=== PATIENT | female | born 1965 ===

== ENCOUNTER 2023-02-24 07:15 | Inpatient (IN) | payer OTHER ==
[~2023-02-24] VITALS: Ht 170.2 cm; Wt 75.3 kg
[2023-02-24] MEDS ORDERED: VITAMIN D310 MCG/1 M PO (08:59)
[2023-02-24] MEDS ORDERED: CALCIUM PO (09:00)
[2023-02-24] MEDS ORDERED: [UNRECOGNIZED DRUG - OTHER] PO (09:00)
[2023-02-24] MEDS ORDERED: OMEGA 3 1,0001 EACH PO (09:01)
[2023-02-24 09:18] LABS: HEMOGLOBIN 13.9 g/dL (12.0-15.00); MEAN CELL VOLUME 85.2 fL (80.00-100.00); MEAN CORPUSCULAR HEMOGLOBIN 29.6 pg (27.00-32.0); MEAN CORPUSCULAR HGB CONC 34.8 g/dl (32.0-36.0); PLATELET COUNT 288 K/uL (150-450); RED CELL DISTRIBUTION WIDTH 13.9 % (11.5-14.5)
[2023-02-24 09:19] LABS: URINE APPEARANCE Clear; URINE BILIRRUBIN Negative (NEGATIVE); URINE BLOOD Negative; URINE COLOR Yellow; URINE GLUCOSE Negative (NEGATIVE); URINE LEUKOCYTE Trace; URINE NITRATE Negative; URINE PROTEIN Negative (NEGATIVE); URINE UROBILINOGEN 0.2 E.U./dl
[2023-02-24 09:22] LABS: URINE BACTERIA 375.4 uL (0.0-1933); URINE EPITHELIAL CELLS 18.3 uL (0.0-38.8); URINE RBC 6.1 uL (0.0-20.8); URINE WBC 13.4 uL (0.0-23.2)
[2023-02-24 09:49] LABS: INR 0.99; PROTHROMBIN TIME 10.4 SECONDS (9.0-11.5)
[2023-02-24 09:57] LABS: ALBUMIN 4.2 gm/dL (3.4-5.0); BILIRUBIN TOTAL 0.74 mg/dL (0.3-1.2); CALCIUM 9.3 mg/dL (8.5-10.1); CREATININE SERUM 0.72 mg/dL (0.55-1.02); GFR 82.91; GLOBULINA 3.6 G/DL (2.4-3.5); POTASSIUM 3.82 mEq/L (3.5-5.1); TOTAL PROTEIN 7.8 gm/dL (6.4-8.2)
[2023-02-28 17:50] LABS: HEMATOCRIT 33.7 % (36.0-45.00); HEMOGLOBIN 11.6 g/dL (12.0-15.00); RED BLOOD COUNT 3.92 M/uL (4.00-6.00)
[2023-03-01 07:36] LABS: HEMATOCRIT 29.8 % (36.0-45.00); MEAN CELL VOLUME 85.8 fL (80.00-100.00); MEAN CORPUSCULAR HGB CONC 34.9 g/dl (32.0-36.0); PLATELET COUNT 207 K/uL (150-450); RED BLOOD COUNT 3.47 M/uL (4.00-6.00); RED CELL DISTRIBUTION WIDTH 13.9 % (11.5-14.5)
[2023-03-01 07:42] LABS: HEMOGLOBIN 10.4 g/dL (12.0-15.00); MEAN CORPUSCULAR HEMOGLOBIN 29.9 pg (27.00-32.0)
[2023-03-02] MEDS ORDERED: BACTRIM DS TAB1 EACH PO (06:38)
[2023-03-02] MEDS ORDERED: XARELTO10 MG PO (06:38)
[2023-03-02] MEDS ORDERED: OXYC1TAB9 PO (06:38)
[2023-03-02] MEDS ORDERED: INTEGRA PLUS C1 EACH PO (06:38)
[2023-03-02 07:15] LABS: HEMATOCRIT 29.1 % (36.0-45.00); MEAN CELL VOLUME 86.8 fL (80.00-100.00); MEAN CORPUSCULAR HEMOGLOBIN 29.9 pg (27.00-32.0); MEAN CORPUSCULAR HGB CONC 34.4 g/dl (32.0-36.0); PLATELET COUNT 195 K/uL (150-450); RED BLOOD COUNT 3.35 M/uL (4.00-6.00); RED CELL DISTRIBUTION WIDTH 13.2 % (11.5-14.5)
== END 2023-03-02 15:14 | DRG 470 ==
LOC: O/R 02-28 06:37 → SURH 02-28 07:15
PROVIDERS: ADMIT Orthopaedic Surgery Sports Medicine; ATTEND Orthopaedic Surgery Sports Medicine
PROC: 0SRC0J9 Replacement of Right Knee Joint with Synthetic Substitute, Cemented, Open Approach (ICD-10-PCS; principal; 2023-02-28 10:30)
PROC: 4A12X4Z Monitoring of Cardiac Electrical Activity, External Approach (ICD-10-PCS; 2023-03-02)
DX: M17.11 Unilateral primary osteoarthritis, right knee (principal); Z20.822 Contact with and (suspected) exposure to COVID-19

== ENCOUNTER 2024-06-29 09:43 | Inpatient (IN) | payer OTHER ==
[~2024-06-29] VITALS: Ht 170.2 cm; Wt 50.8 kg
[~2024-06-29 09:43] MED LIST: BACTRIM DS TAB1 EACH PO; CALCIUM PO; INTEGRA PLUS C1 EACH PO; OMEGA 3 1,0001 EACH PO; OXYC1TAB9 PO; VITAMIN D310 MCG/1 M PO; XARELTO10 MG PO; [UNRECOGNIZED DRUG - OTHER] PO
[2024-06-29 10:11] VITALS: BP 118/53; BP 118/82
[2024-07-09] MEDS ORDERED: LIDOCAINE HCL 1%/EPINEPHRINE 20ML VIAL IJ ONE (13:38)
[2024-07-09] MEDS ORDERED: CEFTRIAXONE SODIUM 2,000 MG VIAL ONE (13:38)
[2024-07-09] MEDS ORDERED: METRONIDAZOLE/SODIUM CHLORIDE 500 MG/100 ML PIGGYBACK IV ONE ×3 (13:38→17:19)
[2024-07-09] MEDS ORDERED: BUPIVACAINE HCL/Mpf 0.5% 10ML VIAL ONE (13:38)
[2024-07-09] MEDS ORDERED: OxyCODONE HCL 5 MG TABLET (ROXICODONE) PO PRN (14:15)
[2024-07-09] MEDS ORDERED: 0.9 % SODIUM CHLORIDE 1,000 ML IV SCH (14:15)
[2024-07-09] MEDS ORDERED: ONDANSETRON HCL 2 MG/ML VIAL IV PRN (14:15)
[2024-07-09] MEDS ORDERED: MORPHINE SULFATE 4 MG/ML CARTRIDGE IV PRN (14:15)
[2024-07-09] MEDS ORDERED: DEXTROSE 50 % IN WATER 0.5 G/ML DISP.SYRIN IV PRN (14:15)
[2024-07-09] MEDS ORDERED: HYOSCYAMINE SULFATE 0.125 MG TAB.SUBL SL SCH (17:00)
[2024-07-09] MEDS ORDERED: GABAPENTIN 300 MG CAPSULE PO SCH (17:00)
[2024-07-09] MEDS ORDERED: POLYETHYLENE GLYCOL 3350 17 GM BLIST.PACK PO SCH (17:00)
[2024-07-09] MEDS ORDERED: METRONIDAZOLE/SODIUM CHLORIDE 500 MG/100 ML PIGGYBACK IV SCH (17:00)
[2024-07-09] MEDS ORDERED: MORPHINE SULFATE 4 MG/ML VIAL IV ONE ×2 (17:15→17:45)
[2024-07-09] MEDS ORDERED: ONDANSETRON HCL 2 MG/ML VIAL ONE (17:53)
[2024-07-09 18:09] LABS: ALBUMIN 3.2 gm/dL (3.4-5.0); CALCIUM 8.1 mg/dL (8.5-10.1); CREATININE SERUM 0.67 mg/dL (0.55-1.02); GFR 89.78; MAGNESIUM 1.6 mg/dL (1.8-2.4); PHOSPHOROUS 3.4 mg/dL (2.5-4.9); POTASSIUM 3.74 mEq/L (3.5-5.1)
[2024-07-09 18:53] LABS: HEMATOCRIT 35.1 % (36.0-45.00); MEAN CELL VOLUME 86.2 fL (80.00-100.00); MEAN CORPUSCULAR HEMOGLOBIN 29.4 pg (27.00-32.0); MEAN CORPUSCULAR HGB CONC 34.1 g/dl (32.0-36.0); PLATELET COUNT 217 K/uL (150-450); RED BLOOD COUNT 4.07 M/uL (4.00-6.00); RED CELL DISTRIBUTION WIDTH 13.6 % (11.5-14.5)
[2024-07-09] MEDS ORDERED: FAMOTIDINE/PF 20 MG/2 ML VIAL ONE (19:59)
[2024-07-09] MEDS ORDERED: ACETAMINOPHEN 500 MG GEL..CAP PO SCH (20:00)
[2024-07-09 20:49] VITALS: BP 107/77; O2SAT 97
[2024-07-09] MEDS ORDERED: CELECOXIB 200 MG CAPSULE PO SCH (21:00)
[2024-07-09] MEDS ORDERED: FAMOTIDINE/PF 20 MG/2 ML VIAL IV PUSH SCH (21:00)
[2024-07-10 00:31] VITALS: BP 125/80; O2SAT 99
[2024-07-10 06:17] LABS: HEMATOCRIT 34.7 % (36.0-45.00); MEAN CELL VOLUME 85.7 fL (80.00-100.00); MEAN CORPUSCULAR HEMOGLOBIN 29.6 pg (27.00-32.0); MEAN CORPUSCULAR HGB CONC 34.6 g/dl (32.0-36.0); PLATELET COUNT 237 K/uL (150-450); RED BLOOD COUNT 4.05 M/uL (4.00-6.00); RED CELL DISTRIBUTION WIDTH 13.2 % (11.5-14.5)
[2024-07-10 06:58] LABS: ALBUMIN 3.2 gm/dL (3.4-5.0); CALCIUM 8.4 mg/dL (8.5-10.1); CREATININE SERUM 0.58 mg/dL (0.55-1.02); GFR 106.04; MAGNESIUM 1.7 mg/dL (1.8-2.4); PHOSPHOROUS 3.4 mg/dL (2.5-4.9); POTASSIUM 3.93 mEq/L (3.5-5.1)
[2024-07-10 09:38] VITALS: BP 116/74; O2SAT 96
[2024-07-10] MEDS ORDERED: MAGNESIUM SULFATE IN WATER 4 GM/100 ML PIGGYBACK IV NR (12:00)
[2024-07-10] MEDS ORDERED: AMINO ACIDS 1 EACH TABLET PO SCH (13:00)
[2024-07-10 16:00] VITALS: BP 115/88; O2SAT 100
[2024-07-10] MEDS ORDERED: ENOXAPARIN SODIUM 40 MG/0.4 ML SYRINGE SUBCUTANEO SCH (17:00)
[2024-07-11 08:16] VITALS: BP 135/83; O2SAT 95
[2024-07-11] MEDS ORDERED: ENOXAPARIN SODIUM 40 MG/0.4 ML SYRINGE SUBCUTANEO SCH (09:00)
[2024-07-11 16:00] VITALS: BP 127/82; O2SAT 96
[2024-07-12] VITALS: BP 121/78; O2SAT 95
[2024-07-12 10:11] VITALS: BP 124/60; O2SAT 96
[2024-07-12] MEDS ORDERED: HYOSCYAMINE0.125 M1 SL (13:04)
[2024-07-12] MEDS ORDERED: TRAM1TAB98 PO (13:05)
[2024-07-12] MEDS ORDERED: PEPCID AC20 MG PO (13:05)
== END 2024-07-12 16:42 | disposition home or self-care (01) | DRG 331 ==
LOC: O/R 07-09 06:59 → SURG 07-09 10:15
PROVIDERS: ADMIT Surgery; ATTEND Surgery
PROC: 0DBP4ZZ Excision of Rectum, Percutaneous Endoscopic Approach (ICD-10-PCS; 2024-07-09)
PROC: 07BC4ZZ Excision of Pelvis Lymphatic, Percutaneous Endoscopic Approach (ICD-10-PCS; 2024-07-09)
PROC: 0DJD8ZZ Inspection of Lower Intestinal Tract, Via Natural or Artificial Opening Endoscopic (ICD-10-PCS; 2024-07-09)
PROC: 0DTN4ZZ Resection of Sigmoid Colon, Percutaneous Endoscopic Approach (ICD-10-PCS; principal; 2024-07-09 10:15)
DX: C19 Malignant neoplasm of rectosigmoid junction (principal); R59.0 Localized enlarged lymph nodes

== ENCOUNTER 2024-08-13 05:32 | Day surgery (SDC) | payer OTHER ==
[2024-08-09 10:59] LABS: HEMATOCRIT 39.3 % (36.0-45.00); HEMOGLOBIN 13.1 g/dL (12.0-15.00); MEAN CELL VOLUME 86.2 fL (80.00-100.00); MEAN CORPUSCULAR HEMOGLOBIN 28.6 pg (27.00-32.0); MEAN CORPUSCULAR HGB CONC 33.2 g/dl (32.0-36.0); PLATELET COUNT 272 K/uL (150-450); RED BLOOD COUNT 4.56 M/uL (4.00-6.00); RED CELL DISTRIBUTION WIDTH 13.7 % (11.5-14.5)
[2024-08-09 11:04] LABS: URINE BACTERIA 130.9 uL (0.0-1933); URINE EPITHELIAL CELLS 9.4 uL (0.0-38.8); URINE RBC 5.1 uL (0.0-20.8); URINE WBC 10.1 uL (0.0-23.2)
[2024-08-09 11:20] VITALS: BP 129/86
[2024-08-09 11:25] LABS: INR 1.02; PARTIAL THROMBOPLASTIN TIME 26.3 SECONDS (22.0-34.0); PROTHROMBIN TIME 11.1 SECONDS (9.0-11.5)
[2024-08-09 12:05] LABS: URINE APPEARANCE CLEAR; URINE COLOR YELLOW; URINE GLUCOSE NEGATIVE (NEGATIVE)
[2024-08-09 12:06] LABS: URINE BILIRRUBIN NEGATIVE (NEGATIVE); URINE BLOOD NEGATIVE; URINE KETONE NEGATIVE (NEGATIVE); URINE LEUKOCYTE NEGATIVE; URINE NITRATE NEGATIVE; URINE PROTEIN NEGATIVE (NEGATIVE); URINE UROBILINOGEN 0.2 E.U./dl
[2024-08-09 12:16] LABS: ALBUMIN 4.2 gm/dL (3.4-5.0); BILIRUBIN TOTAL 0.96 mg/dL (0.3-1.2); CALCIUM 9.6 mg/dL (8.5-10.1); CREATININE SERUM 0.62 mg/dL (0.55-1.02); GFR 98.19; GLOBULINA 3.5 G/DL (2.4-3.5); POTASSIUM 3.94 mEq/L (3.5-5.1); TOTAL PROTEIN 7.7 gm/dL (6.4-8.2)
[~2024-08-13] VITALS: Ht 167.6 cm; Wt 71.7 kg
[~2024-08-13 05:32] MED LIST changes: +HYOSCYAMINE0.125 M1 SL; +PEPCID AC20 MG PO; +TRAM1TAB98 PO
[2024-08-13] MEDS ORDERED: CEFAZOLIN SODIUM 1,000 MG VIAL IV ONE (11:30)
[2024-08-13] MEDS ORDERED: TRAM1TAB98 PO (11:38)
== END 2024-08-13 15:22 | disposition home or self-care (01) ==
LOC: CIR.AMB 05:32
PROVIDERS: ATTEND Surgery
DX: C19 Malignant neoplasm of rectosigmoid junction (principal); Z88.6 Allergy status to analgesic agent; M19.90 Unspecified osteoarthritis, unspecified site
CPT/HCPCS: 36561; C1751